=== PATIENT | female | born 1995 | race Caucasian/White ===

== ENCOUNTER 2024-06-11 12:28 | Emergency (ER) | payer SELFPAY ==
[2024-06-11 12:34] VITALS: BP 196/97
--- NOTE | 2024-06-11 12:59 | ED.SKININJ ---
HPI-Injury
General
Chief Complaint: Skin Problem
Source: patient
Time Seen by Provider: 06/11/24 12:51
History of Present Illness-Injury
Initial Injury comments:
28-year-old female presents with a rash she noted underneath bilateral breasts in the bra line. It is red and itchy. She denies fevers or chills. She does admit to substance abuse most recent this morning. She is not interested in getting any
help. She is not diabetic. She denies chest pain shortness of breath or fever. No other complaints at this time
Phy Exam
Physical Exam
Physical Exam:
General: Well-appearing female no acute respiratory distress
HEENT: Normocephalic atraumatic
Heart: Regular rate and rhythm no murmurs
Lungs: Clear no wheeze
Skin: Please note female vocal artist was present in the room for the entire physical exam. There is erythema noted under the bilateral breasts symmetrically. Pruritic in nature and burning in nature but not indurated or fluctuant. No drainage.
Extremities: No cyanosis
Course
Orders/Labs/Results
Orders:
Orders
06/11/24 12:58
Fluconazole [Diflucan] 150 mg PO NOW STA
Vital Signs
Initial and Last Documented VS:
Initial Vital Signs
Temp Pulse Resp BP Pulse Ox
98.6 F 105 17 196/97 98
06/11/24 12:34 06/11/24 12:34 06/11/24 12:34 06/11/24 12:34 06/11/24 12:34
Last Documented Vital Signs
Temp Pulse Resp BP Pulse Ox
98.6 F 105 17 196/97 98
06/11/24 12:34 06/11/24 12:34 06/11/24 12:34 06/11/24 12:34 06/11/24 12:34
MDM/Problems Addressed
Differential Diagnosis Includes:
Skin rash. This is likely fungal infection of the skin. Patient explained she has no insurance and cannot afford any prescriptions. She was given a pill of Diflucan. She was advised to keep the area dry. Recommended topical antifungal as well.
Also offered her help with her substance abuse. She states she has been in and out of rehab and is not familiar with the process but is not interested in getting any help. She has a safe place to go from here.
*Critical Care Note
Total Time (30-74mins, 75-104mins- exclusive of procedures): Not Applicable
ED Attending Note
-
Portions of this chart may have been created with voice recognition software.� Occasional wrong word or��sound alike� substitutions may have occurred due to the inherent limitations of voice recognition software.
Discharge Plan
Departure
Patient Disposition: Home (Routine Discharge)
Date of Disposition: 06/11/24
Time of Disposition: 13:01
Patient with high blood pressure during this ER visit?: No
Discharge Problem:
Fungal infection of skin
Instructions: Skin Rash (DC)
Referrals:
NONE,* [Family Provider] -
Activity Restrictions/Additional Instructions:
You were given a dose of antifungal here which should help. Consider using Lotrimin [id number] as well. Keep the area dry
Interventions
Interventions:
*Risk Screen - Suicide Last Done: 06/11/24 12:36
*Neglect/Abuse Screening Last Done: 06/11/24 12:36
*ED COVID-19 Vaccine History Last Done: 06/11/24 12:36
Discharge Date and Time
Print Language: HONG KONGER
--- NOTE | 2024-06-11 13:35 | EDRN ---
Pt had exam by MEGAN Chirinos with Tech Kasandra final inspector. She was awaiting diflucen. Provided d/c instructions while awaiting medication. Pt verbalized understanding. Pt reported uber coming for ride. Observed leaving without medication administration.
== END 2024-06-11 13:35 | disposition home or self-care (01) ==
LOC: EMR 12:28
PROVIDERS: EMERGENCY PHYSICIAN Student in an Organized Health Care Education/Training Program
DX: B36.9 Superficial mycosis, unspecified (principal); F19.10 Other psychoactive substance abuse, uncomplicated; Z59.7 Insufficient social insurance and welfare support
CPT/HCPCS: 99281

== ENCOUNTER 2024-06-20 17:43 | Inpatient (IN) | payer BC, SELFPAY ==
[2024-06-20] VITALS (8 sets, daily range): BP systolic 97–128; BP diastolic 57–84; BMI 26.6
--- NOTE | 2024-06-20 15:09 | ED.GENMED ---
History of Present Illness
General
Chief Complaint: Crisis Evaluation
Time Seen by Provider: 06/20/24 14:59
History of Present Illness
History of Present Illness:
HPI: Patient has history of polysubstance use. She has been at [facility] multiple times for detox/rehab. A few weeks ago, she started using drugs again. She was using cocaine, crystal meth, and believes she was exposed to both fentanyl and tranq.
She called [facility] again to try to get help however they felt that she needed crisis and was encouraged to come here for further evaluation and medical treatment. She also has ongoing skin wounds to the upper extremities and right side of the jaw.
EXAM:
GENERAL: The patient is severely akathisic
HEENT: Moist oral mucosa, there are skin lesions noted over the skin of the right ankle of the mandible that extends to the chin, there is no definite abscess on exam
CARDIOVASCULAR: No murmurs, tachycardic heart rate, regular rhythm, No chest wall tenderness
PULMONARY: No respiratory distress, breath sounds are clear and equal
ABDOMEN: Soft with no peritoneal signs, no tenderness
NEUROLOGIC: Excellent strength all extremities, no coordination deficits
PSYCHIATRIC: The patient has pressured speech, however she has reasonable insight and judgment
EXTREMITIES: Nontender, no edema, moves all extremities equally
SKIN: Multiple skin lesions consistent with drug use, scarred cut bosch are noted to the bilateral volar upper extremities
TIME OF INITIAL ENCOUNTER: 3 PM
NUMBER AND COMPLEXITY OF PROBLEMS ADDRESSED AT THE ENCOUNTER
� Chronic conditions affecting care: Somes abuse, hep C, alcohol abuse
� Acute Exacerbation and/or Progression of Chronic Illness: This is an acute but recurring problem
� Differential Diagnosis includes: Polysubstance abuse, sympathomimetic toxidrome, no evidence for suicidal ideation/gesture, bacteremia, sepsis
AMOUNT AND/OR COMPLEXITY OF DATA TO BE REVIEWED AND ANALYZED
� I performed an independent evaluation of and my interpretation is:
EKG:
CT:
X-rays:
Laboratory Studies: White count 16.4, hemoglobin 13.1
Other:
� Review of other/old records: The patient was here recently diagnosed with a fungal skin infection. There are no old labs to compare.
� Clinical information was obtained by an independent historian: Urinary spoke to hr representative from [facility]
� Prescriptions/Medications Considered but not given:
� Further testing considered but not performed:
RISK OF COMPLICATIONS AND/OR MORBIDITY OR MORTALITY OF PATIENT MANAGEMENT
� Social determinants of health affecting care: History of polysubstance abuse
� Discussion with other providers: Hospitalist for admission at 4:30 PM
� Escalation of care including admission/observation vs risk of discharge considered: The patient has rather prominent skin lesions and does have leukocytosis in the setting of IV drug use. She is afebrile but leukocytosis is
noted. Therefore, blood cultures and lactic acid obtained. She was given Ativan as she appeared markedly akathisic upon arrival and tachycardic. On reassessment at 4:30 PM, she remains to have some pressured speech but still has relatively
appropriate mental status. Given her history of IV drug abuse along with leukocytosis and low bicarb, as well as markedly abnormal skin lesions, I do have some concern for bacteremia. I have given IV vancomycin.
Phy Exam
Physical Exam
Physical Exam:
See HPI
Course
Orders/Labs/Results
Orders:
Orders
06/20/24 15:10
0.9% Sodium Chloride 1000 ml [Nss] 1,000 ml IV BOLUS
Lorazepam [Ativan] 2 mg IV NOW STA
06/20/24 15:15
Urine Drug Abuse Screen Urgent
Date Specimen was Collected: 06/20/24
Time Specimen was Collected: 16:12
06/20/24 15:23
Alcohol Urgent
Complete Blood Count/With Diff Urgent
Comprehensive Metabolic Panel Urgent
Blood Culture Routine
MARIANA Source: Blood/Venous
Specimen Description:
Blood Culture Urgent
MARIANA Source: Blood/Venous
Specimen Description:
06/20/24 15:24
Lactic Acid Q4H
Comment: CANCEL 2nd LACTIC ACID IF 1st LACTIC ACID IS LESS THAN 2
06/20/24 18:00
*Vancomycin IV Pharmacy to Dose VANCOMYCIN Pharmacy to Dose [VANCOCIN Pharmacy to Dose] 1 each Pharmacy To Prepare [Call Pharmacy To Prepare] 0 ml IV PER PROTOCOL
06/20/24 19:30
Lactic Acid Q4H
Comment: CANCEL 2nd LACTIC ACID IF 1st LACTIC ACID IS LESS THAN 2
Abnormal Lab Results
06/20/24
15:23
WBC 16.4 H 10^3/uL
(4.8-10.8)
Hct 36.3 L %
(37.0-47.0)
MCV 80.8 L fL
(81.0-99.0)
MPV 11.1 H fL
(7.4-10.4)
Abs Immat Gran (auto) 0.1 H 10^3/uL
(0-0.05)
Absolute Neuts (auto) 12.7 H 10^3/uL
(1.4-6.5)
Absolute Monos (auto) 1.4 H 10^3/uL
(0.1-0.6)
Neutrophils % 77.8 H %
(42.2-75.2)
Lymphocytes % 12.8 L %
(20.5-51.1)
Carbon Dioxide 14 L* mmol/L
(22-30)
BUN 31 H mg/dl
(7-17)
Total Bilirubin 1.7 H mg/dl
(0.2-1.3)
AST 122 H U/L
(14-36)
ALT 45 H U/L
(0-35)
Albumin 5.1 H g/dl
(3.5-5.0)
06/20/24 15:23
06/20/24 15:23
Vital Signs
Initial and Last Documented VS:
Initial Vital Signs
Temp Pulse Resp Pulse Ox
98.7 F 148 33 99
06/20/24 14:30 06/20/24 14:30 06/20/24 14:30 06/20/24 14:30
Last Documented Vital Signs
Temp Pulse Resp BP Pulse Ox
99.5 F 114 22 119/68 100
06/20/24 16:05 06/20/24 16:05 06/20/24 16:05 06/20/24 16:05 06/20/24 16:05
*Critical Care Note
Total Time (30-74mins, 75-104mins- exclusive of procedures): Not Applicable
ED Attending Note
-
Portions of this chart may have been created with voice recognition software.� Occasional wrong word or��sound alike� substitutions may have occurred due to the inherent limitations of voice recognition software.
Discharge Plan
Departure
Referrals:
UNKNOWN - PT DOES,NOT KNOW [Family Provider] -
Interventions
Interventions:
*Risk Screen - Suicide Last Done: 06/20/24 14:30
*General Assessment Last Done: 06/20/24 14:30
*Neglect/Abuse Screening Last Done: 06/20/24 15:00
*ED COVID-19 Vaccine History Last Done: 06/20/24 14:30
ED-Psychological Assessment Last Done: 06/20/24 14:40
Discharge Date and Time
Print Language: DUTCH
[2024-06-20] MEDS: ATIVAN 2 MG IV ×2 (15:29→18:43)
[2024-06-20] MEDS: NSS 1000 IV ×2 (15:29→19:19)
[2024-06-20 15:42] LABS: % Basophils 0.3 % (0-2); % Eosinophils 0.2 % (0-6); % Immature Granulocytes 0.4 % (0-0.5); % Lymphocytes 12.8 % (20.5-51.1); % Monocytes 8.5 % (1.7-9.3); % Neutrophils 77.8 % (42.2-75.2); Absolute Basophils 0.1 10^3/uL (0-0.2); Absolute Immature Granulocytes 0.1 10^3/uL (0-0.05); Absolute Lymphocytes 2.1 10^3/uL (1.2-3.4); Absolute Monocytes 1.4 10^3/uL (0.1-0.6); Absolute Neutrophils 12.7 10^3/uL (1.4-6.5); Hematocrit 36.3 % (37.0-47.0); Hemoglobin 13.1 g/dL (12.0-16.0); Mean Corp Hgb Conc. 36.1 g/dL (33.0-37.0); Mean Corpuscular Hgb 29.2 pg (27.0-31.0); Mean Corpuscular Volume 80.8 fL (81.0-99.0); Mean Platelet Volume 11.1 fL (7.4-10.4); Nucleated Red Blood Cells % 0 %; Platelet Count 283 10^3/uL (130-400); Red Blood Cell Count 4.49 10^6/uL (4.20-5.40); Red Cell Dist. Width 13.2 % (11.5-14.5); White Blood Cell Count 16.4 10^3/uL (4.8-10.8)
[2024-06-20 16:06] LABS: Lactic Acid 1.4 mmol/L (0.7-2.0)
[2024-06-20 16:06] LABS: ALT (SGPT) 45 U/L (0-35); AST (SGOT) 122 U/L (14-36); Albumin 5.1 g/dl (3.5-5.0); Alcohol None Detected; Alkaline Phosphatase 59 U/L (38-126); Blood Urea Nitrogen 31 mg/dl (7-17); Calcium 9.8 mg/dl (8.4-10.2); Carbon Dioxide 14 mmol/L (22-30); Chloride 101 mmol/L (98-107); Estimated Creatinine Clearance 100 ml/min; Glucose 79 mg/dl (70-99); Potassium 3.9 mmol/L (3.5-5.1); Sodium 140 mmol/L (135-145); Total Bilirubin 1.7 mg/dl (0.2-1.3); Total Protein 7.6 g/dl (6.3-8.2); eGFR > 60.00
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
--- NOTE | 2024-06-20 16:47 | PHANOTE ---
Med Rec Note:
Pt previously was prescribed Lurasidone 60mg QPM, Bupropion XL 150mg Daily, Sertraline 100mg 2 tabs Daily. All of these medications were filled on 03/24/24 for 30 day supplies from [facility] #[id number] by Felicia Hansen.
--- NOTE | 2024-06-20 16:54 | W.PN.UPDATE ---
Update Note
Progress Note Update
This note serves as an addendum to the H&P by demo specialist TERRI Lynn CASHURGIS,
HPI
28F HX polysubstance abuse( Meth, Cociane, Fentanyl and Tranq ) HX Hep C, HX of admission to [facility] multiple times for detox/rehab who pw wounds on face arms associated w/ meth use, markedly restlessness and inability to sit still WBC 16.4,
initial HR 148 (currently improved), bicarb only 14. High AG MA. Gave 2mg IV ativan and IV fluids. Eval possible bacteremia. HX sharing needles,
PHX see above
Vital Signs
Temp Pulse Resp BP Pulse Ox
99.5 F 114 22 119/68 100
06/20/24 16:05 06/20/24 16:05 06/20/24 16:05 06/20/24 16:05 06/20/24 16:05
PE
Gen: restless, cannot sit still,
HEENT: moist OM
Neck: supple
Lungs: clear
Cor: tachycardic
Abdomen: soft benign
HOUSE CALLS NURSE: NFND
Derm; multiple skin lesions over the right ankle of the mandible that extends to the chin. No definite abscess on exam
Psych: pressured speech, however she has reasonable insight and judgment, follows commands
Abnormal Lab Results
06/20/24
15:23
WBC 16.4 H
Hct 36.3 L
MCV 80.8 L
MPV 11.1 H
Abs Immat Gran (auto) 0.1 H
Absolute Neuts (auto) 12.7 H
Absolute Monos (auto) 1.4 H
Neutrophils % 77.8 H
Lymphocytes % 12.8 L
Carbon Dioxide 14 L*
BUN 31 H
Total Bilirubin 1.7 H
AST 122 H
ALT 45 H
Albumin 5.1 H
No prior hospitalist admission:
ASSESSMENT & PLAN
Active polysubstance abuse( Meth, Cocaine, Fentanyl and Tranq )
Current akathisia , tachycardia suggest acute substance WDS
Multiple skin lesions over the right ankle of the mandible that extends to the chin.
At risk for bacteremia
HX Hep C
- Pending UDS
- check Hep C
- BCx sent to eval for bacteremia
- Empiric IV vancomycin
- IV Ativan PRN for WDS
- Supportive care
- 1 on
- Crisis consult for rehab
- Psych consult
Abnormal LFTx
HX Hep C
- trend LFts
Recent unprotected sex on Wed/Wed
- Empiric IV CFTX 1gm once plus Azithromycin 500 mg IV for STD prevention
DVT Px: LMWH
Code: Full code
IP TLM
[2024-06-20 17:13] LABS: Amphetamines Positive (Negative); Barbiturates Negative (Negative); Benzodiazepines Negative (Negative); Buprenorphine Negative (Negative); Cocaine Positive (Negative); Marijuana Negative (Negative); Methadone Negative (Negative); Methamphetamines Positive (Negative); Opiates Negative (Negative); Phencyclidine Negative (Negative); Tricyclic Antidepressants Negative (Negative)
[2024-06-20] MEDS: VANCOCIN 540 MG IV (17:17)
[2024-06-20 17:38] LABS: Fentanyl, Urine Negative (Negative)
[2024-06-20 17:50] LABS: HCG, Serum Qualitative Screen Negative
[2024-06-20] MEDS: NICODERM TRANSDERMAL 21 MG TRANSDERM (19:18)
[2024-06-20] MEDS: ROCEPHIN 500 MG IV (19:19)
[2024-06-20] MEDS: STERILE WATER FOR INJECTION 10 ML IV (19:20)
[2024-06-20] MEDS: LOVENOX 40 MG SC (19:21)
[2024-06-20] MEDS: ZITHROMAX 1000 MG PO (19:21)
[2024-06-20] MEDS: HALDOL 1 MG IV (20:11)
--- NOTE | 2024-06-20 20:24 | PHA.VAN.IN ---
Assessment
- Assessment
Renal Function: Appears similar to baseline
Concomitant Antimicrobials: NONE
- Previous Dosing Experience
Previous Regimen: NONE
AUC Dosing Plan
- Dosing Variables
Dosing Weight (kg): 74.7
Dosing CrCl (ml/min): 100
Vd coefficient (L/kg): 0.7
- Empiric Dosing
Initial / Loading Dose: 2GM
Maintenance Regimen: 1250MG IV Q12H
Estimated AUC (mcg*h/mL): 583
Estimated Peak (mcg*h/mL): 36.8
Estimated Trough (mcg/ml): 14.7
Estimated Half Life (H): 7.9
Pharmacokinetics Vancomycin I
- -
Patient Age: 28
Patient Sex: Female
Vancomycin Day #: 1
Indication: Skin And Soft Tissue
Requesting Provider: RUCHI
Height / Weight:
Height 5 ft 6 in
Actual Weight 74.7 kg
Pertinent Past Medical History: IVDA
- Vital Signs / Lab Results
Temp Pulse Resp BP Pulse Ox
97.8 F 138 22 128/84 96
06/20/24 18:31 06/20/24 18:31 06/20/24 18:31 06/20/24 18:31 06/20/24 18:31
Lab Results - Hematology
06/20/24
15:23
WBC 16.4 H
Lab Results - Chemistry
06/20/24
15:23
BUN 31 H
Creatinine 0.8
Estimated Creat Clear 100
Albumin 5.1 H
06/20/24 06/20/24
15:24 15:24
Lactic Acid 1.4 Cancelled
--- NOTE | 2024-06-20 20:40 | W.PN.UPDATE ---
Update Note
Progress Note Update
RN notified SENIOR ADVISORY patient is escalating regardless of IV Ativan 2mg given one hour ago and requesting proper MSAS. Patient seen and evaluated, Patient trying to get out of bed, agitated, yelling out at nurses, restless HR in 150's-160's, Tremulous. IV
Haldol 1mg ordered, patient refusing to be touched, and fighting nurses, restraints ordered, Discussed case with Dr. Barroso and Lynn Barge Captain, will transfer patient to ICU and will order Precedex IV infusion. ICU SENIOR ADVISORY made aware.
--- NOTE | 2024-06-20 20:45 | PTCARENOTE ---
Received tsx pt from [address] [place] [id number] bed accompanied w/ security after code guanaco was called. Pt is currently sedated and in 4 point restraints. Pt also accompanied w/ 1:1 observation due to threat of self harm. Pt unable to answer questions at
this time. Pt is ST on tele monitor, has no edema, and palpable pedal pulses. Pt is on RA satting 99% pulse ox. On auscultation lungs sound clear. Pt has a round abdomen w/ + bowel sounds. Pt has multiple wounds throughout body. Large wound areas
include facial, b/l arms, and left lateral thigh.
--- NOTE | 2024-06-20 21:03 | PTCARENOTE ---
This RN was assisting this pt, pt was cooperative with care but extremely restless, agitated, unable to lay down, aggressively scratching head, picking at skin. Pt laying at end of bed, unable to follow commands in order to lay safely in bed. This
RN and PCt at bedside assisted pt up in bed, upon turning pt, a tiny baggy of a white substance was discovered. Nursing cloth grader supervisor at bedside to assist in managing the pt. Awaiting orders from WILFRIDO. pt stated that her sister brought her the drugs to
use later. Security called, all belongings searched. Police called per protocol, and at bedside to confiscate drugs. Pt became increasing more agitated, screaming, refusing to cooperate. pt attempting to leave. pt began hitting herself in the head
and thrashing in bed. Code purple called, B/L hand mitts, and 4pt soft restraints applied. WILFRIDO Mccord notified, orders obtained. Pt upgraded to ICU level care and transferred with security. Bill VIGIL to resume care.
[2024-06-20] MEDS: PRECEDEX 100 IV (21:50)
--- NOTE | 2024-06-20 23:00 | PTCARENOTE ---
Precedex gtt initiated due to pt becoming increasingly agitated and uncooperative.
[2024-06-20 23:26] LABS: Urine Albumin Trace (Neg - Trace); Urine Bilirubin Negative (Negative); Urine Character Slightly Cloudy (Clear); Urine Color Yellow; Urine Glucose Negative (Negative); Urine Ketone 3+ (Negative); Urine Leukocyte Trace (Negative); Urine Nitrite Negative (Negative); Urine Occult Blood 3+ (Negative); Urine Urobilinogen Negative (Neg - 1+)
[2024-06-20] MEDS: MYCOSTATIN CREAM TOPICAL (23:35)
[2024-06-20 23:46] LABS: Urine Squamous Cell >30 /LPF (Few)
[2024-06-20 23:47] LABS: Urine Mucus Moderate
[2024-06-20 23:50] LABS: Urine Bacteria Moderate (Negative)
[2024-06-21] VITALS (24 sets, daily range): BP systolic 88–109; BP diastolic 51–76; BMI 27.4
[2024-06-21] MEDS: LMX 4 TOPICAL (02:48)
[2024-06-21] MEDS: SUBUTEX 8 MG SL (04:44)
[2024-06-21] MEDS: NSS 1000 IV (04:49)
--- NOTE | 2024-06-21 05:00 | PTCARENOTE ---
Subutex administered by this RN for COWS-10 as per protocol.
[2024-06-21] MEDS: VANCOCIN 275 MG IV (05:31)
[2024-06-21 05:50] LABS: % Basophils 0.4 % (0-2); % Eosinophils 2.5 % (0-6); % Immature Granulocytes 0.4 % (0-0.5); % Lymphocytes 27.1 % (20.5-51.1); % Monocytes 5.8 % (1.7-9.3); % Neutrophils 63.8 % (42.2-75.2); Absolute Eosinophils 0.2 10^3/uL (0-0.7); Absolute Lymphocytes 2.1 10^3/uL (1.2-3.4); Absolute Monocytes 0.5 10^3/uL (0.1-0.6); Hematocrit 33.3 % (37.0-47.0); Hemoglobin 11.7 g/dL (12.0-16.0); Mean Corp Hgb Conc. 35.1 g/dL (33.0-37.0); Mean Corpuscular Hgb 30.1 pg (27.0-31.0); Mean Corpuscular Volume 85.6 fL (81.0-99.0); Mean Platelet Volume 11.2 fL (7.4-10.4); Nucleated Red Blood Cells % 0 %; Platelet Count 202 10^3/uL (130-400); Red Blood Cell Count 3.89 10^6/uL (4.20-5.40); Red Cell Dist. Width 13.2 % (11.5-14.5); White Blood Cell Count 7.9 10^3/uL (4.8-10.8)
[2024-06-21 06:03] LABS: ALT (SGPT) 42 U/L (0-35); AST (SGOT) 80 U/L (14-36); Alkaline Phosphatase 43 U/L (38-126); Blood Urea Nitrogen 18 mg/dl (7-17); Calcium 8.7 mg/dl (8.4-10.2); Carbon Dioxide 21 mmol/L (22-30); Chloride 105 mmol/L (98-107); Direct Bilirubin 0.2 mg/dl (0.0-0.4); Estimated Creatinine Clearance > 125 ml/min; Glucose 97 mg/dl (70-99); Magnesium 2.2 mg/dl (1.6-2.3); Potassium 3.5 mmol/L (3.5-5.1); Sodium 140 mmol/L (135-145); Total Protein 6.3 g/dl (6.3-8.2); eGFR > 60.00
[2024-06-21] MEDS: FIRST-MOUTHWASH BLM SUSPENSION 5 ML PO (07:14)
[2024-06-21] MEDS: MYCOSTATIN CREAM 1 APPLIC TOPICAL (07:16)
[2024-06-21] MEDS: LMX 4 1 APPLIC TOPICAL ×2 (07:16→17:14)
[2024-06-21] MEDS: NICODERM TRANSDERMAL 21 MG TRANSDERM (07:19)
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
--- NOTE | 2024-06-21 08:15 | PTCARENOTE ---
0700-Received pt awake and alert.Pt is agitated,anxious,having difficulty sitting still,moving arms and legs,picking at her lip,diaphoretic.c/o right shoulder discomfort.COWS scored 15.Subutex administration discussed with pt.Pt did not feel this is
effective as she does not feel she is in opioid withdrawal.Precedex gtt and IVF infusing.SR noted.Lungs CTA.POX 96% on RA.No BM.No void.Pt states that she will void soon.
0800-COWS reassessed and scored 6.Pt is more calm and able to sit still.
0900-Pt asking about the events last night.Pt states that she may have placed 3 bags of drugs per vagina.2 bags contain cocaine and 1 bag contains crystal meth.Dr Root notified immediately.Bladder scanned 489 ml.Straight cath 800 ml tejal urine.Pt
requesting to have Hep C and HIV titers completed as she has IVDA recently.Dr Root made aware.Plan of care discussed with pt.
--- NOTE | 2024-06-21 08:36 | PHA.VAN.FU ---
Vancomycin Assessment / Plan
- Assessment
Renal Function: Stable
WBC's are: WNL
In the past 24 hrs, patient has been: Afebrile
- Dosing Plan
Continue: Vanc 1250mg Q12H
- Monitoring Plan
No level(s) ordered at this time: consider levels in next few days
- Follow Up
Pharmacy will continue to follow.
Vancomycin Follow UP
- -
Patient Age: 28
Patient Sex: Female
Vancomycin Day #: 2
Indication: Skin And Soft Tissue
Requesting Provider: Maegan Gan
Pertinent Antimicrobial Allergies:
NKDA
Height / Weight:
Height 5 ft 6 in
Actual Weight 77.1 kg
Pertinent Past Medical History: IV TORREY
- Vital Signs / Lab Results
Temp Pulse Resp BP Pulse Ox
97.6 F 75 13 100/68 97
06/21/24 08:09 06/21/24 08:00 06/21/24 08:00 06/21/24 08:00 06/21/24 08:19
Lab Results - Hematology
06/20/24 06/21/24
15:23 05:18
WBC 16.4 H 7.9
Lab Results - Chemistry
06/20/24 06/21/24
15:23 05:18
BUN 31 H 18 H
Creatinine 0.8 0.5 L
Estimated Creat Clear 100 > 125
Albumin 5.1 H 4.0
06/20/24 06/20/24
15:24 15:24
Lactic Acid 1.4 Cancelled
Lab Results - Urine
06/20/24
16:45
Urine Nitrite (Reflex) Negative
Leukocyte Esterase Rfl Trace A
Ur Squamous Epith Cells >30
[2024-06-21] MEDS: ZANAFLEX 2 MG PO ×2 (09:44→17:17)
--- NOTE | 2024-06-21 09:57 | WOUNDNOTE ---
[facility] RN note: Patient admitted with polysubstance abuse
See H&P for complete history.
Wound Location and type/assessment: Patient admitted with multiple scabbed areas on left thigh, right and left upper extremity, nose chin and lip. Patient said she gets scabs from 'picking' and that they are common and heal up quickly. She denies
itching or soreness. The right side of lip has some purulent drainage which patient reports was 'unusual.' The right wrist has a small open area surrounded by scab. Lidocaine had previously been applied with good results. Patient not turned for
assessment due to agitation. .
Appetite: Appears too restless to eat at this time. She ate about 20% of her breakfast.
Pressure redistribution devices in place: Centrella max air.
Plan: Wound cultures taken of left lip. All other wounds cleaned and Vaseline applied. Left wrist also covered with dry dressing. Will order Aquaphor for scabbed areas. RN Willow given update. Will confirm orders with hospitalist and follow as needed.
Note to case management of equipment requested for discharge:
Recommend follow up at wound care center upon discharge.
--- NOTE | 2024-06-21 10:57 | W.PN.HOSP.TC ---
Today's Communication/Plan
-
see PN
Assessment / Plan
Assessment / Plan
28yo F with PMHx of HepC (treated), IVDA (crystal meth, benzos, fentanyl, cocaine) arived as a referal from [facility] for crisis eval and placement for polysubstnce abuse. Also found swelling with wound f her lower lip and multiple wounds in
both hands.
A/P:
#Polysubstance abuse with withdrawal
Weaning off Precedex drip in ICU
Start Valium taper
Psych consult
Crisis consult
CM for rehab
Patient was storing drugs in vagina as confirmed by patient herself
- will get DOWELING MACHINE OPERATOR consult
#Hx of IVDA, HepC (treated), unprotected sex
Agreeable to HepC and HIV test
Will be recommended to repeat HIV test in 1 month
Counseled on safe sex practices
#Leukocytosis with lower lip wound, b/l UE wounds
#Positive UA
2/2 drug abuse and IVs
Bcx pedning on Vanco
s/p ceftriaxone/Azithro in ED
cont ceftriaxone pending Ucx
#Nicotine dependency
Nicoderm
#Hx of suicidal attempt
Psych consult
no current SI
#transaminitis
2/2 IVDA vs hepC
follow LFT
will need outpatient follow up with GI, no indication for inpatient treatment as of now
DVT ppx lovenox
Full code
I have spent at least 58min reviewing chart, test results, communication with consultants and direct patient care
Anticipated Discharge: > 48 hours
Subjective/Interval History
-
Date of Service: June 21, 2024
Objective Data
-
Labs:
Laboratory Results
06/21/24
05:18
WBC 7.9
Hgb 11.7 L
Hct 33.3 L
Plt Count 202 D
Sodium 140
Potassium 3.5
Chloride 105
Carbon Dioxide 21 L
BUN 18 H
Creatinine 0.5 L
Glucose 97
Calcium 8.7
Total Bilirubin 1.0
AST 80 H
ALT 42 H
Alkaline Phosphatase 43
Vital Signs:
Vital Signs
Temp Pulse Resp BP Pulse Ox
97.6 F 75 13 100/68 97
06/21/24 08:09 06/21/24 08:00 06/21/24 08:00 06/21/24 08:00 06/21/24 08:19
I&O
06/20/24 06/21/24 06/22/24
06:59 06:59 06:59
Intake Total 355.8 / 461.6 903.2 / 903.2
Output Total 789 / 789
Balance 355.8 / 461.6 114.2 / 114.2
Review of Systems
-
History Source: Patient
All other systems: Reviewed and negative
Psych: Reports Anxious
Physical Exam
-
HEENT: Other (Lower lip swelling)
Respiratory: Clear to Auscultation
Cardiac: Regular Rhythm; Negative Murmur
GI: Soft, Nontender and Nondistended
Musculoskeletal: No Clubbing, No Cyanosis, No Edema and Other
Skin: Other (multiple abrasions and wounds (no open wounds or under skin collection) in both arms)
Neuro: Awake, Alert, Oriented and AO x 3
Psych: Anxious
--- NOTE | 2024-06-21 12:00 | PTCARENOTE ---
Pt assessed.Pt is awake and alert.Occasionally tearful and anxious.IVF capped and Precedex discontinued as ordered.1:1 observation discontinued as per Psychiatry MD.
[2024-06-21] MEDS: VALIUM 10 MG PO (12:03)
--- NOTE | 2024-06-21 12:42 | WOUNDNOTE ---
CHIN, LIPS, NOSE
--- NOTE | 2024-06-21 12:43 | WOUNDNOTE ---
LEFT LOWER ARM
--- NOTE | 2024-06-21 12:44 | WOUNDNOTE ---
LEFT LOWER ARM
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
[2024-06-21] MEDS: ANCEF 5 IV (14:25)
[2024-06-21] MEDS: ATIVAN 2 MG IV ×2 (14:32→18:50)
--- NOTE | 2024-06-21 14:40 | PTCARENOTE ---
Pt c/o increased anxiety.Ativan 2 mg IV given as ordered.
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
--- NOTE | 2024-06-21 16:00 | PTCARENOTE ---
Pt assessed.No change in assessment noted.
[2024-06-21] MEDS: NSS IV (17:13)
[2024-06-21] MEDS: LOVENOX 40 MG SC (17:17)
--- NOTE | 2024-06-21 20:59 | W.PN.UPDATE ---
Update Note
Progress Note Update
RN notified ADVICE LINE RN, patient wants to leave Against Medical Advise (AMA). Patient is AAOx3, able to make decisions at present, Read the AMA paper and verbalized understanding, consent is signed by the patient and this ADVICE LINE RN and placed in the chart. Friend
Jocelynn made aware per patient request, will be picked up by friends. Patient requested not to call mother.
--- NOTE | 2024-06-21 21:15 | PTCARENOTE ---
Resumed care of pt sitting on site of bed AAOx3. Pt asking for her clothes. Pt states her friend is going to pick her up so they can vape outside and she will come back. I educated pt on hospital policy and strict no vaping/smoking/ drugs ect. This
RN encouraged pt to stay in hospital to allow for proper treatment and facilitate necessary support upon discharge. Pt stated she understood the risks and wants to leave AMA. Nursing supervisor [employer] at bedside as well as [employer]. Pt willing to fill out AMA
paperwork. IV discontinued. Pt given all personal belongings. Security at bedside to walk pt out of hospital.
== END 2024-06-21 21:25 | disposition left against medical advice (07) | DRG 894 ==
LOC: ICU 17:43
PROVIDERS: Clinical Nurse Specialist Family Health; ADMITTING PHYSICIAN Internal Medicine; ATTENDING PHYSICIAN Internal Medicine; CONSULT PHYSICIAN Internal Medicine; CONSULT PHYSICIAN Obstetrics & Gynecology; CONSULT PHYSICIAN Psychiatry & Neurology Psychiatry; EMERGENCY PHYSICIAN Emergency Medicine
PROC: 0UCGXZZ Extirpation of Matter from Vagina, External Approach (ICD-10-PCS; 2024-06-20)
DX: F14.13 Cocaine abuse, unspecified with withdrawal (principal); Z53.29 Procedure and treatment not carried out because of patient's decision for other reasons; F15.13 Other stimulant abuse with withdrawal; D72.829 Elevated white blood cell count, unspecified; L01.00 Impetigo, unspecified; K12.1 Other forms of stomatitis; F41.9 Anxiety disorder, unspecified; F32.A Depression, unspecified; F17.290 Nicotine dependence, other tobacco product, uncomplicated; F29 Unspecified psychosis not due to a substance or known physiological condition; B36.9 Superficial mycosis, unspecified; T19.2XXA Foreign body in vulva and vagina, initial encounter; W44.8XXA Other foreign body entering into or through a natural orifice, initial encounter; Z78.1 Physical restraint status; Z86.19 Personal history of other infectious and parasitic diseases; Z91.51 Personal history of suicidal behavior; Z91.410 Personal history of adult physical and sexual abuse
CPT/HCPCS: 71046; 80053; 80306; 80307; 81003; 81015; 82077; 82248; 83605; 83735; 84703; 85025; 87040; 87070; 87086; 87147; 87205; 87491; 87591; 93005; 96365; 96366; 96375; 96376; 99285